=== PATIENT | female | born 1985 | race Caucasian/White ===

== ENCOUNTER 2017-01-17 13:16 | Emergency (ER) | payer OTHER ==
[~2017-01-17] VITALS: Ht 162.6 cm; Wt 97.7 kg
[2017-01-17] MEDS ORDERED: SERT-138 PO (13:31)
[2017-01-17] MEDS ORDERED: VYVA70CA3 (13:31)
[2017-01-17] MEDS ORDERED: LEVO75TA4 (13:31)
[2017-01-17] MEDS ORDERED: ACETAMINOPHEN TAB 650MG DOSE (2X325MG) PO ONE (14:30)
[2017-01-17 16:13] VITALS: BP 130/72
--- NOTE | 2017-01-17 16:41 | REP ---
Emergency room request first trimester obstetric ultrasound for vaginal bleeding: There is an intrauterine gestational sac with a pole. There is cardiac activity, the heart rate is 173 beats per minute. The pole crown-rump length is 2.8 cm corresponding to 9 weeks 4 days gestational age. The [facility] of 08/18/2017. By LMP gestational age is 9-week 6 days. No subchorionic hematoma is identified. Signed by Diogo Nur MD 01/17/2017 04:32 P
== END 2017-01-17 16:19 | disposition home or self-care (01) ==
LOC: M ED 13:16
DX: O26.891 Other specified pregnancy related conditions, first trimester (principal); M54.5 Low back pain; O99.281 Endocrine, nutritional and metabolic diseases complicating pregnancy, first trimester; E03.9 Hypothyroidism, unspecified; O26.851 Spotting complicating pregnancy, first trimester; Z3A.09 9 weeks gestation of pregnancy; Z79.899 Other long term (current) drug therapy

== ENCOUNTER 2018-08-22 23:12 | Emergency (ER) | payer OTHER ==
[~2018-08-22] VITALS: Ht 162.6 cm; Wt 96.4 kg
[~2018-08-22 23:12] MED LIST: LEVO75TA4; SERT-138 PO; VYVA70CA3
[2018-08-22] MEDS ORDERED: SYNT50TA (23:16)
== END 2018-08-22 23:53 | disposition left against medical advice (07) ==
LOC: M ED 23:12
DX: Z53.29 Procedure and treatment not carried out because of patient's decision for other reasons (principal)

== ENCOUNTER → 2018-08-23 | Outpatient (CLI) | payer OTHER ==
[~2018-08-23] MED LIST changes: +SYNT50TA
--- NOTE | 2018-08-23 15:28 | REP ---
Clinical: Epigastric and abdominal pain. Technique: Upright view of the chest with supine and upright views of the abdomen and pelvis. Findings: Frontal upright view of the chest demonstrates no acute cardiopulmonary process or free air below the diaphragm to suspect pneumoperitoneum. Supine and upright views of the abdomen and pelvis demonstrate nonspecific bowel gas pattern without obstruction or perforation. No organomegaly. No abnormal calcifications. Skeletal structures normal for age. Impression: Nonspecific bowel gas pattern. Electronically Signed by Aniceto Lowe MD 08/23/2018 03:19 P
[2018-08-23 16:29] LABS: BASO % 0.4 % (0.0-1.0); EOS # 0.1 10^3/uL (0.0-0.50); EOS % 0.6 % (0.0-3.0); HEMOGLOBIN 12.7 g/dl (12.0-15.5); LYMPH # 1.4 10^3/uL (1.5-4.5); LYMPH % 14.5 % (24.0-44.0); MEAN CORPUSCULAR HEMOGLOBIN 28.8 pg (27.0-33.0); MEAN CORPUSCULAR HGB CONC 32.6 g/dl (32.0-36.5); MEAN CORPUSCULAR VOLUME 88.4 fl (80.0-96.0); MONO # 0.6 10^3/uL (0.0-0.8); MONO % 6.1 % (0.0-5.0); NEUTROPHILS # 7.7 10^3/uL (1.8-7.7); NEUTROPHILS % 78.2 % (36.0-66.0); PLATELET COUNT, AUTOMATED 209 10^3/uL (150-450); RED BLOOD COUNT 4.41 10^6/uL (4.00-5.40); WHITE BLOOD COUNT 9.9 10^3/uL (4.0-10.0)
[2018-08-23 16:40] LABS: ALBUMIN 4.2 GM/DL (3.2-5.2); ALT/SGPT 27 U/L (12-78); AMYLASE 30 U/L (25-115); BILIRUBIN,TOTAL 1.6 MG/DL (0.2-1.0); BLOOD UREA NITROGEN 12 MG/DL (7-18); CALCIUM LEVEL 8.9 MG/DL (8.5-10.1); CARBON DIOXIDE LEVEL 28 MEQ/L (21-32); CHLORIDE LEVEL 106 MEQ/L (98-107); CREATININE FOR GFR 0.87 MG/DL (0.55-1.30); FREE T4 1.03 NG/DL (0.76-1.46); GLOMERULAR FILTRATION RATE > 60.0 (>60); GLUCOSE, FASTING 86 MG/DL (70-100); LIPASE 50 U/L (73-393); POTASSIUM SERUM 3.4 MEQ/L (3.5-5.1); SODIUM LEVEL 140 MEQ/L (136-145); TOTAL PROTEIN 7.5 GM/DL (6.4-8.2)
== END ==
LOC: M WUC 14:09
PROVIDERS: ATTEND Physician Assistant
DX: R14.3 Flatulence (principal)

== ENCOUNTER → 2019-03-07 | Outpatient (REF) | payer OTHER ==
[2019-03-07 20:01] LABS: APPEARANCE, URINE CLOUDY (CLEAR); BACTERIA, URINE AUTO 1+ (NEGATIVE); BILIRUBIN, URINE AUTO NEGATIVE (NEGATIVE); BLOOD, URINE BLOOD 3+ (NEGATIVE); COLOR, URINE RED (YELLOW); GLUCOSE, URINE (UA) AUTO NEGATIVE (NEGATIVE); KETONE, URINE AUTO NEGATIVE (NEGATIVE); LEUKOCYTE ESTERASE, URINE AUTO 1+ (NEGATIVE); NITRITE, URINE AUTO NEGATIVE (NEGATIVE); PROTEIN, URINE AUTO 3+ mg/dL (NEGATIVE); RBC, URINE AUTO TNTC /HPF (0-3); SPECIFIC GRAVITY URINE AUTO 1.011 (1.002-1.035); SQUAMOUS EPITHELIAL CELL UR AU 2 /HPF (0-6); UROBILINOGEN, URINE AUTO 0.2 mg/dL (0.0-2.0); WBC, URINE AUTO 130 /HPF (0-3)
== END ==
LOC: M LAB REF 19:32
PROVIDERS: ATTEND Physician Assistant Medical
DX: N39.0 Urinary tract infection, site not specified (principal)

== ENCOUNTER → 2019-10-13 | Outpatient (CLI) | payer OTHER | LOC: M LABSMTC 14:12 | PROVIDERS: ATTEND Family Medicine | DX: Z03.818 Encounter for observation for suspected exposure to other biological agents ruled out (principal); Z11.59 Encounter for screening for other viral diseases ==

== ENCOUNTER → 2020-05-31 | Outpatient (REF) | payer OTHER ==
[2020-05-31 12:34] LABS: BASO # 0.1 10^3/uL (0.0-0.2); BASO % 1.1 % (0.0-1.0); EOS # 0.2 10^3/uL (0.0-0.5); EOS % 2.6 % (0.0-3.0); HEMATOCRIT 43.7 % (36.0-47.0); HEMOGLOBIN 14.2 g/dl (12.0-15.5); LYMPH # 1.9 10^3/uL (1.5-5.0); LYMPH % 30.8 % (24.0-44.0); MEAN CORPUSCULAR HEMOGLOBIN 29.3 pg (27.0-33.0); MEAN CORPUSCULAR HGB CONC 32.5 g/dl (32.0-36.5); MEAN CORPUSCULAR VOLUME 90.1 fl (80.0-96.0); MONO # 0.4 10^3/uL (0.0-0.8); MONO % 5.8 % (2.0-8.0); NEUTROPHILS # 3.7 10^3/uL (1.5-8.5); NEUTROPHILS % 59.4 % (36.0-66.0); PLATELET COUNT, AUTOMATED 247 10^3/uL (150-450); RED BLOOD COUNT 4.85 10^6/uL (4.00-5.40); WHITE BLOOD COUNT 6.2 10^3/uL (4.0-10.0)
[2020-05-31 12:35] LABS: APPEARANCE, URINE HAZY (CLEAR); BACTERIA, URINE AUTO NEGATIVE (NEGATIVE); BILIRUBIN, URINE AUTO NEGATIVE (NEGATIVE); BLOOD, URINE BLOOD 1+ (NEGATIVE); COLOR, URINE STRAW (YELLOW); GLUCOSE, URINE (UA) AUTO NEGATIVE (NEGATIVE); KETONE, URINE AUTO NEGATIVE (NEGATIVE); LEUKOCYTE ESTERASE, URINE AUTO TRACE (NEGATIVE); MUCUS, URINE SMALL (NEGATIVE); NITRITE, URINE AUTO NEGATIVE (NEGATIVE); PROTEIN, URINE AUTO NEGATIVE (NEGATIVE); RBC, URINE AUTO 2 /HPF (0-3); SPECIFIC GRAVITY URINE AUTO 1.009 (1.002-1.035); SQUAMOUS EPITHELIAL CELL UR AU 5 /HPF (0-6); UROBILINOGEN, URINE AUTO 0.2 mg/dL (0.0-2.0); WBC, URINE AUTO 3 /HPF (0-3)
[2020-05-31 13:04] LABS: CREATININE,RANDOM URINE 51.4 MG/DL; TOTAL PROTEIN,RANDOM URINE 9.4 MG/DL (0.0-12.0)
[2020-05-31 13:26] LABS: MAGNESIUM LEVEL 2.3 MG/DL (1.8-2.4); PHOSPHORUS LEVEL 3.6 MG/DL (2.5-4.9); TOTAL 25(OH) VITAMIN D 14.4 NG/ML (30.0-100.0)
[2020-06-04 21:06] LABS: ANA (HEP2) Positive (.); ANTI SCLERODERMA ANTIBODIES 0.3 AI (0.0-0.9); ANTI-HISTONE ANTIBODIES 2.1 Units (0.0-0.9); ANTI-U1 RNP AB <20 Units (<20); BETA-2 GLYCOPROTEIN I ABY IGA <9 (0-25); BETA-2 GLYCOPROTEIN I ABY IGG <9 (0-20); BETA-2 GLYCOPROTEIN I ABY IGM <9 (0-32); CARDIOLIPIN IGA ANTIBODY <9 APL U/mL (0-11); CARDIOLIPIN IGG ANTIBODY <9 GPL U/mL (0-14); CARDIOLIPIN IGM ANTIBODY 13 MPL U/mL (0-12); COMPLEMENT TOTAL (CH50) 47 U/mL (>41)
[2020-06-06 10:37] LABS: DRVV SCREEN 38.5 SEC
[2020-06-06 10:47] LABS: PTT LUPUS TYPE ANTICOAG SCREEN 0.9 (0-1.2)
== END ==
LOC: M SFHCRHEU 09:47
PROVIDERS: ATTEND Internal Medicine
DX: R76.8 Other specified abnormal immunological findings in serum (principal); M79.10 Myalgia, unspecified site
CPT/HCPCS: 81001; 82306; 82550; 82570; 82607; 83520; 83540; 83735; 84100; 84156; 85025; 85730; 86038; 86146; 86147; 86160; 86162; 86235; G0463

== ENCOUNTER → 2020-06-19 | Outpatient (CLI) | payer OTHER ==
--- NOTE | 2020-06-21 14:18 | SLEEPHOME ---
DATE: 06/19/2020 ORDERED BY: Dr. Chandra, Rheumatology Diagnostic home sleep testing was performed due to concern for the obstructive sleep apnea syndrome in this patient with a history of fatigue. For testing, a nocturnal T3 respiratory monitoring device was used. Continuous record was made of pulse, oxygen saturation, air flow, chest and abdominal strain, and body position. There was 9 hours and 59 minutes of data reviewed. There was 8 hours and 25 minutes marked as time in bed. During the interval marked time in bed there were 78 respiratory events identified of 10 second in duration or greater for a respiratory event index of 9.3. The events were primarily obstructive. Baseline pulse rate 60. Pulse rate ranged 48-96. Baseline saturation 93%. Saturations fell to 79%. Testing was performed in both the supine and nonsupine positions. IMPRESSION: Abnormal home sleep testing with repetitive respiratory events and oxygen desaturations to 79% with a respiratory event index of 9.3 is consistent with the obstructive sleep apnea syndrome. RECOMMENDATION: The patient should be encouraged to undergo formal sleep evaluation.
== END ==
LOC: M SLEEP HO 10:13
PROVIDERS: ATTEND Internal Medicine
DX: R53.82 Chronic fatigue, unspecified (principal)

== ENCOUNTER → 2020-09-24 | Outpatient (CLI) | payer OTHER ==
--- NOTE | 2020-09-25 15:13 | SLEEPCENT ---
DATE: 09/24/2020 ORDERED BY: BRITTANY Monahan Nocturnal polysomnography was performed for the titration of pressure therapy in this patient with a presumptive diagnosis of obstructive sleep apnea syndrome confirmed by home testing revealing a respiratory event index of 9.3. For testing the patient was fit with a ResMed F20 full face mask of medium size, 4 cm of water pressure were applied to the circuit, and the lights were extinguished. Seven hours and 17 minutes of data were reviewed. There were 325 minutes of sleep identified. Sleep latency was mildly prolonged at 19.5 minutes. REM latency was mildly prolonged at 138.5 minutes. Sleep architecture improved later in the study with optimal pressure therapy. There were two REM cycles noted. Overall sleep efficiency was 75.3%. The electrocardiogram showed a sinus rhythm with an average heart rate of 56 beats per minute. EEG showed normal waveforms for wake and sleep. Respiratory events were felt best palliated with CPAP at a pressure of +9 and remaining measures of sleep physiology were normal. IMPRESSION: Obstructive sleep apnea syndrome (G47.33). RECOMMENDATION: Nightly use of pressure therapy 9 cm of water. cc: LOCO MÁRQUEZ MD
== END ==
LOC: M SLEEP 20:00
PROVIDERS: ATTEND Nurse Practitioner Family
DX: G47.33 Obstructive sleep apnea (adult) (pediatric) (principal)

== ENCOUNTER → 2020-12-27 | Outpatient (REF) | payer OTHER ==
[2020-12-27 12:54] LABS: TOTAL 25(OH) VITAMIN D 31.5 NG/ML (30.0-100.0)
== END ==
LOC: M SFHCRHEU 10:23
PROVIDERS: ATTEND Internal Medicine
DX: E55.9 Vitamin D deficiency, unspecified (principal); M79.10 Myalgia, unspecified site

== ENCOUNTER → 2021-09-17 | Outpatient (CLI) | payer OTHER | LOC: M SLEEP 20:12 | PROVIDERS: ATTEND Nurse Practitioner Family | DX: G47.33 Obstructive sleep apnea (adult) (pediatric) (principal) ==

== ENCOUNTER → 2022-04-13 | Outpatient (REF) | payer OTHER ==
[2022-04-13 13:22] LABS: TOTAL 25(OH) VITAMIN D 20.1 NG/ML (20.0-100.0)
== END ==
LOC: M SFHCRHEU 09:08
PROVIDERS: ATTEND Internal Medicine
DX: R76.8 Other specified abnormal immunological findings in serum (principal); E55.9 Vitamin D deficiency, unspecified; M79.10 Myalgia, unspecified site

== ENCOUNTER → 2022-10-28 | Outpatient (CLI) | payer OTHER | LOC: M WUC 13:01 | PROVIDERS: ATTEND Student in an Organized Health Care Education/Training Program | DX: M79.671 Pain in right foot (principal) ==

== ENCOUNTER → 2023-04-16 | Outpatient (REF) | payer OTHER | LOC: M LAB REF 16:40 | PROVIDERS: ATTEND Physician Assistant Medical | DX: R25.3 Fasciculation (principal) ==

== ENCOUNTER → 2024-02-10 | Outpatient (CLI) | payer OTHER | LOC: M WUC 09:11 | PROVIDERS: ATTEND Physician Assistant Medical | DX: M54.2 Cervicalgia (principal) ==